=== PATIENT | male | born 1965 | race Caucasian/White ===

== ENCOUNTER 2016-06-09 07:09 | Day surgery (SDC) | payer MEDICARE ==
[~2016-06-09] VITALS: Ht 182.9 cm; Wt 77.1 kg
[~2016-06-09 07:09] MED LIST: AMLO10TA3 PO; CARV12.52 PO; EPIN0.3P17 IJ; FLUC200T5 PO; FLUC25PO MC; INSU500I SQ; Lactated Ringer's 1,000 ML IV SCH; NPH,100V11 SUBQ; OMEP20CA11 PO; PANT40TA3 PO; TERA2CAP4 PO; TRAZ-118 PO
[2016-06-09] MEDS ORDERED: Lidocaine PF 1% 30 mL Inj ONE (07:10)
[2016-06-09] MEDS ORDERED: Propofol 10,000 mCg/mL 20 mL Inj ONE (07:10)
[2016-06-09 07:47] VITALS: BP 130/84; PULSE 70; RESP 14; O2SAT 96
[2016-06-09] MEDS ORDERED: 0.9% Sodium Chloride 1,000 ML ONE (07:48)
--- NOTE | 2016-06-09 07:52 | PCM.HPANE ---
Patient Data Date of Service: Jun 09, 2016 Surgeon Admitting Provider: Attending Provider:Gregg Ray MD Primary Care Physician:Polo Clemons MD Other Provider:Ambrocio Collado Anesthesia Reason for Visit Screening, Esophagitis Ht/WT & BMI Height (Feet): 6 Height (Inches): 0 Weight (Kilograms): 77.11 Body Mass Index 23.00 Allergies Coded Allergies: Penicillins (Verified Allergy, Unknown, UNKNOWN, 05/24/15) Past Anesthesia History Anesthesia History: Denies:: Abnormal Airway, Anesthesia Reactions, Difficult Intubation, Fam Anesthesia Reaction, Fam Malignant Hypertherm, Malignant Hyperthermia Diabetes History Hx Diabetes?: Yes (Dialysis patient, non compliant) Type of Diabetes: Type I Glycemic Control: Insulin Dependent Current Bedside Blood Glucose: 121 MRSA MRSA: No Medications Blood Thinner: Aspirin Last Dose Blood Thinner: Jun 02, 2016 Hypertension Medication: Yes Home Meds Incl Beta Belinda: Yes Date Beta Belinda Taken: Jun 09, 2016 Time Beta Belinda Taken: 05:[address] 40 Mg Tablet.dr40 Mg PO BID #90 TABLET Prov:Jan Way MD 04/04/16 Reported Medications Fluconazole 200 Mg Ctowck330 Mg PO DAILY Ref 0 06/08/16 Fluconazole 100 Gm Jruqve370 Gm MC 06/08/16 Epinephrine 0.3 Mg/0.3 Ml Auto.injct0.3 Mg IJ ALLERGIES 04/02/16 Insulin Regular, Human (Humulin R U-500 Kwikpen)500/Ml (3) Insuln.pen5-10 Unit SQ BIDAC 04/02/16 NPH, Human Insulin Isophane (HUMulin-N U100 Insulin Vial)100 Unit/1 Ml Vial5-10 Unit SUBQ BID #1 VIAL Ref 0 per insulin sliding scale 04/02/16 Amlodipine 10 Mg Znqnhm65 Mg PO DAILY Ref 0 04/02/16 Carvedilol 12.5 Mg Hriqmx99.5 Mg PO BIDWM #60 04/02/16 Discontinued Reported Medications Omeprazole 20 Mg Capsule.dr20 Mg PO BID Ref 0 06/08/16 Terazosin 2 Mg Capsule2-4 Mg PO HS #60 04/02/16 Trazodone 100 Mg Osrvdc677-813 Mg PO HS #30 04/02/16 Mirtazapine 7.5 Mg Tablet7.5 Mg PO HS #30 04/02/16 Losartan Potassium 25 Mg Alxqnw48 Mg PO DAILY #30 04/02/16 Zolpidem 10 Mg Uokuae77 Mg PO HS PRN For Insomnia Ref 0 04/01/16 Temazepam 15 Mg Jmbidbp62-84 Mg PO HS PRN For Insomnia 30 Days Ref 0 04/01/16 History History of ENT Problems?: No HEENT History: Positive for:: Hearing Problem (mild right ear) Denies:: Abnormal Airway Difficult Intubation Denture Type: Full- Upper Hx of Heart Problems?: Yes Cardiovascular History: Positive for:: Atrial Fibrillation Hypertension Denies:: AICD Cardiac Surgery Chest Pain Congestive Heart Failure Edema Heart Murmur Irregular Heartbeat Pacemaker Rheumatic Fever Thrombophlebitis Valvular Heart Disease Hx of Respiratory Problem?: No Respiratory History: Positive for:: Pneumonia Use of C-PAP Machine (MARCELLE+ W/ BIPAP SLEEP STUDY 09/2013) Denies:: Asthma COPD Chest Surgery Cough Dyspnea Emphysema Hemoptysis Oxygen Administration Pulmonary Embolism Tuberculosis Hx Neurologic Problems?: Yes Neurological History: Positive for:: Dementia Headaches Seizures (with hypoglycemia) Denies:: Alzheimer's Disease CVA Dizziness Multiple Sclerosis Parkinson's Disease Hx of GI Problems?: Yes Gastrointestinal History: Positive for:: Gastroesphageal Reflux (gastritis in past) Gastrointestinal Bleeding Heartburn Denies:: Diverticulitis Hepatitis Hiatal Hernia Rectal Bleeding Other GI Pertinent History: chronic kidney dx last dialysis last night 06/08/16 Hx of Problems?: Yes Genitourinary History: Positive for:: HX of Hemodialysis (06/08 last) Denies:: Kidney Stones Urinary Tract Infection HX of Peritoneal Dialysis: Yes Male Hx: Denies:: Prostate Problems Scrotal Mass Testicular Surgery Skin History: Denies:: History Skin Disorders? Pressure Ulcers Hx Musculoskeletal Problems?: Yes Musculoskeletal History: Positive for:: Back Injury Musculoskeletal Trauma (S/P ORIF LT HIP,BILAT BKA'S) Denies:: Degenerative Joint Joint Replacement (pin in left hip) Systemic Lupus Hx of Psycho/Social Problems?: Yes Psycho Social History: Positive for:: Anxiety Hx Depression Denies:: Bipolar Disorder Suicide Attempt Hx Surgeries?: Yes (bilateral legs amputation,left arm fistula,) Hx Any Other Health Problems?: Yes Other History: Positive for:: Hospitalization (CHEST PAIN/ARRYTHMIA) Denies:: Cancer Endocrine Disease Thyroid Disease History Blood Transfusions: Denies:: Blood Transfuse Reaction Blood Transfusions Hx Diabetes: Yes (Dialysis patient, non compliant)Bedside Blood Glucose: 121 Other Pertinent History: bilateral leg amputation Hx Alcohol Use: Yes (very rarely)Hx Substance Use: No Smoking Status: Former Smoker Have You Smoked inLast 12 mo: No Stop/Bang Treated for Sleep Apnea?: Yes Do You Have a CPAP Machine?: No S-Snoring: Do You Snore Loudly: No T-Tired: feel tired, fatigued: No O-Obsered: Observed not breath: Yes P-Blood Pressure: treated: Yes B- Body Mass Index > 35 kg/m2: No A- Age over 50: Yes N- Neck Large Circumference: No G- Gender Male: Yes MARCELLE Total Score: 4 MARCELLE Risk Assessment: High Risk, =/>3 Yes MARCELLE Category 4 OutPt Procedure: Yes Risk Assessment Category Category 1A: Patient has history of documented sleep apnea, and HAS NOT received any narcotic, sedative or anesthesia administration during this stay. Category 1B: Patient has history of documented sleep apnea, and HAS received any narcotic , sedative or anesthesia administration during this stay Category 2: Patient has SUSPECTED Obstructive Sleep Apnea, and HAS received any narcotic , sedative or anesthesia administration during this stay. Category 3: Patient has SUSPECTED Obstructive Sleep Apnea and HAS NOT received narcotic, sedative or anesthesia administration during this stay. Category 4: Outpatient in Procedural Areas with known sleep apnea or who screen positive for High Risk via the STOP/BANG questionnaire. Exam Exam Vital Signs Vital Signs Date Time Temp Pulse Resp B/P Pulse Ox O2 Delivery O2 Flow Rate FiO2 06/09/16 07:47 37.1 70 14 130/84 96 Room Air General Appearance: Alert, Oriented X3, Cooperative HEENT/AIRWAY: MP 3, Neck Movement (OK), Mouth Opening (Wide), Other (upper dentures) Lungs: Clear to Auscultation, Normal Air Movement Heart: Regular Rate/Rhythm, Normal S1, Normal S2 Meds/Labs/Diagnostics Bedside Blood Glucose: 121 Plan Impression Patient chart reviewed, patient interviewed and anesthestic plan with risks, benefits, and alternatives discussed, and informed consent obtained. NPO Status: Prep ASA Physical Status: ASA3 Severe Disease Anesthetic Plan: MAC Bene/Risks/Altern/Consents: Yes HP Complete Prior to Induction: Yes Jan Sandoval MD Jun 09, 2016 07:52
[2016-06-09] MEDS ORDERED: Ondansetron 2 mg/mL 2 mL Inj IVPUSH PRN (08:35)
[2016-06-09] MEDS ORDERED: MetoCLOpramide 5 mg/mL 2 mL Inj IVPUSH PRN (08:35)
[2016-06-09 08:42] VITALS: BP 138/72; PULSE 68; RESP 14; O2SAT 95
--- NOTE | 2016-06-09 08:49 | PCM.ANEP1 ---
Post Anesthesia Phase 1 PACU Phase 1 Assessment Date of Service: Jun 09, 2016 Vital Signs Vital Signs Date Time Temp Pulse Resp B/P Pulse Ox O2 Delivery O2 Flow Rate FiO2 06/09/16 08:42 36.8 68 14 138/72 95 Room Air 06/09/16 07:47 37.1 70 14 130/84 96 Room Air Anesthetic Administered: MAC Level of Alertness: Sleepy, easy to arouse CONWAY's with Equal Strength: Yes Pain: No Nausea or Vomiting: No Oxygen Delivery: Room Air Lungs: Normal Air Movement Jan Sandoval MD Jun 09, 2016 08:49
[2016-06-09 08:52] VITALS: BP 129/65; PULSE 69; RESP 14; O2SAT 97
[2016-06-09 09:03] VITALS: BP 111/63; PULSE 67; RESP 14; O2SAT 96
--- NOTE | 2016-06-09 09:07 | PCM.ANEP2 ---
Post Anesthesia Evaluation ASA/CMS Post Anesthesia Date of Service: Jun 09, 2016 VS in Patient's Normal Range?: Yes Resp Stable; Airway Patent?: Yes CV Function & Hydration Stable: Yes Mental Status Recovered?: Yes Pain control Satisfactory?: Yes N/V Control Satisfactory?: Yes Jan Sandoval MD Jun 09, 2016 09:07
--- NOTE | 2016-06-09 09:48 | ENDO ---
[address] [address] ENDOSCOPY PROCEDURE PATIENT: MICHELLE MARY : 1965 MR#: [id number] ADMIT: 06/09/2016 JOB ID: [id number] DATE OF SERVICE: 06/09/2016 PRIMARY PROVIDER: Polo Clemons MD. PROCEDURE: 1. Upper endoscopy. 2. Colonoscopy. INDICATIONS: A 50-year-old male with a history of severe ulcerative esophagitis, returning for surveillance. He also reports for colon cancer screening. EQUIPMENT: GIF-H190 and PCF-H180AL. SEDATION: Monitored anesthesia, as provided by Dr. Jan Sandoval MD. COMPLICATIONS: None identified. BOWEL PREPARATION: Suboptimal. PROCEDURE INFORMATION: After the risks and benefits were explained, written and verbal informed consent was obtained. The patient was brought into the endoscopy suite and placed into the left lateral decubitus position. Sedation was achieved as above. The scope was introduced into the mouth through the bite block, and advanced to the second portion of the duodenum. The scope was slowly withdrawn to carefully examine the mucosa for any defects or lesions. Retroflexed views were accomplished in the stomach. The stomach was decompressed. Scope removed from the patient who tolerated the procedure well. The patient was then turned around. A digital rectal examination accomplished. Mild internal hemorrhoids noted. The scope introduced into the rectum and advanced under direct visualization to the cecum as identified by the appendiceal orifice and ileocecal valve. The scope was slowly withdrawn to carefully examine the mucosa for any defects or lesions. Multiple direct views were made through the dentate line for exclusion of pathology. The colon was decompressed. The scope removed from the patient who tolerated the procedure well. FINDINGS: 1. Duodenum: No pathology from the bulb through to the second portion. 2. Stomach: The patient had some retained food debris consistent with diabetic gastroparesis. No ulcers, no outlet obstruction. No mass lesions. Retroflexed views of the LES were unremarkable. 3. Esophagus: The squamocolumnar junction correlated with the top of the gastric folds. The GEJ was at about 41 cm from the incisors. There was no evidence of any ongoing active esophagitis at present. 4. Colon: Suboptimal bowel prep with copious amounts of liquid and fibrous stool debris. Within the limitations of bowel prep (there were some areas we just simply could not cleanse, otherwise the scope would have been completely clogged) we did not uncover any significant polyps, mass lesions, or inflammatory features. ENDOSCOPIC DIAGNOSES: 1. Subtle sliding hiatal hernia (not mentioned above). 2. Mild gastropathy with diabetic gastroparesis. 3. Mild hemorrhoids. 4. Suboptimal bowel preparation. RECOMMENDATIONS: 1. Continue anti-reflux therapy. 2. Repeat colonoscopy in 1-2 years with a double prep and anesthesia.
== END 2016-06-09 23:59 | disposition home or self-care (01) ==
LOC: END 07:09
PROVIDERS: ATTEND Internal Medicine Gastroenterology
DX: Z12.11 Encounter for screening for malignant neoplasm of colon (principal); K64.9 Unspecified hemorrhoids; K44.9 Diaphragmatic hernia without obstruction or gangrene; E10.43 Type 1 diabetes mellitus with diabetic autonomic (poly)neuropathy; K31.84 Gastroparesis; N18.6 End stage renal disease; I12.0 Hypertensive chronic kidney disease with stage 5 chronic kidney disease or end stage renal disease; I48.91 Unspecified atrial fibrillation; K21.9 Gastro-esophageal reflux disease without esophagitis; F32.9 Major depressive disorder, single episode, unspecified; F41.9 Anxiety disorder, unspecified; Z79.4 Long term (current) use of insulin; Z79.82 Long term (current) use of aspirin; Z99.2 Dependence on renal dialysis; Z87.891 Personal history of nicotine dependence
CPT/HCPCS: 43235; G0121; J7030

== ENCOUNTER 2016-12-24 15:33 | Inpatient (IN) | payer MEDICARE, OTHER ==
[~2016-12-24 15:33] MED LIST changes: -Lactated Ringer's 1,000 ML IV SCH; -OMEP20CA11 PO; -TERA2CAP4 PO; -TRAZ-118 PO
[2016-12-24 16:34] VITALS: BP 169/86; PULSE 86; RESP 18; O2SAT 93
[2016-12-24 16:41] VITALS: PULSE 83
[2016-12-24] MEDS ORDERED: LOSA50TA37 PO (17:13)
[2016-12-24] MEDS ORDERED: OMEP20CA11 PO (17:13)
[2016-12-24] MEDS ORDERED: CHOL200047 PO (17:13)
[2016-12-24] MEDS ORDERED: MULT-666 PO (17:17)
--- NOTE | 2016-12-24 17:20 | NUR ---
Admit Patient arrived to unit as a direct admit from [facility]. VS: BP 169/86 P 84 Sp02 93% on 4L NC RR 18 BG 105. Pt is alert and oriented when awake but is very tired and would fall asleep mid-conversation. Pt c/o severe left hip and leg pain. Was given 4mg morphine [employer] by EMS. Fall precautions and seizure pads in place. Pt has bilateral BKAs; LLE has sore from prosthetics as dose medial right calf (see assessment for details). Pt is on JAYCEE bed. MD notified of pts arrival.
[2016-12-24] MEDS ORDERED: IBUP200C PO (17:23)
[2016-12-24] MEDS ORDERED: ASPI325T32 PO (17:23)
[2016-12-24] MEDS ORDERED: TERA2CAP4 PO (17:35)
--- NOTE | 2016-12-24 17:46 | NUR ---
Admit nurse note Admission assessment completed based on pt. report. Pt. states he doesn't know why he's here "they brought me here from [place]." Pt is drowsy but oriented when roused with verbal stimuli. He become easily irritated with my assessment questions. Med history obtained based on pt. report and [facility] report. It is unclear whether he is taking carvedilol: He picked it up recently but does not remember it, and pt. recently d/c'd terazosin for unknown reasons. Pt. states he lives with his girlfriend Ginna and is managing at home "to a point." He states he was at dialysis at 0400 today and took all his medications including insulin around that time. Pt. c/of 7/10 L leg pain which is abnormal for him. Hx sleep apnea but pt. does not use his CPAP. in room with pt. SP02 monitoring on currently. Report given to Andrew Mancuso.
--- NOTE | 2016-12-24 18:34 | NUR ---
Blood sugar MD ordered D20 at 40ml/hr and stated that he wanted hourly blood glucose checks until D20 fluid runs out
[2016-12-24] MEDS ORDERED: Dextrose 10% 1,000 ML IV SCH (18:40)
[2016-12-24] MEDS ORDERED: Polyethylene Glycol (PEG) 17 Gm Powder PO PRN (19:20)
[2016-12-24] MEDS ORDERED: Alum-Mag Hydrox-Simeth 30 mL Suspension PO PRN (19:20)
--- NOTE | 2016-12-24 19:45 | DRSVH ---
PROCEDURE: US VEINOUS LEG DUPLEX UNILATERAL, LEFT INDICATIONS: ddimer, pain TECHNIQUE: Real-time imaging, as well as color and pulse Doppler interrogation, were performed of the lower extr emity deep veins from the inguinal ligament to the popliteal fossa. COMPARISON: None. FINDINGS: The deep veins are normally compressible, and free of intraluminal thrombus. Color and pu lse Doppler demonstrate normal phasic intraluminal flow. There is normal augmentation response to di stal compression maneuver. IMPRESSION: No DVT found, left lower extremity. Below knee amputation left leg. Dictated by: Nicola Lozano M.D. on 12/24/2016 at 19:43 Approved by: Nicola Lozano M.D. on 12/24/2016 at 19:44
[2016-12-24 19:56] LABS: BASOPHILS % (AUTO) 0.1 % (0-3); EOSINOPHILS % (AUTO) 0.4 % (0-5); MONOCYTES % (AUTO) 10.1 % (4-12); Mean Corpuscular Hemoglobin 31.1 pg (27.0-35.0); NEUTROPHILS % (AUTO) 79.2 % (40-74); Platelet Count 155 bil/L (150-400)
[2016-12-24 20:41] LABS: TROPONIN T 0.121 ug/L (0.0-0.011)
[2016-12-24] MEDS: HYDROmorphone 0.5 mg/0.5 mL iSecure Syringe IVPUSH PRN (21:13)
[2016-12-24] MEDS: Heparin 5,000 Unit/mL Inj SUBQ SCH (21:13)
--- NOTE | 2016-12-24 21:44 | PCM.HPMED ---
Subjective Date of Service Dec 24, 2016 Primary Provider: Admitting Physician: Deejay Kerr MD Primary Care Physician: Polo Clemons MD Attending Physician: Deejay Kerr MD Chief Complaint: Hypoglycemic seizure. History of Present Illness: Mr. Nelson Garcia is a 51 gentleman with end-stage renal disease and BKA's secondary to poorly controlled diabetes mellitus on hemodialysis Mondays, Wednesdays, and Fridays, who presents as a direct admit from [facility] to [facility] due to witnessed seizures and hypoglycemia. Patient was driving to work 2 hours following his dialysis session, and around 11am patient [place] [address] [place] ditch were first responders found him actively seizing. EMS reports a Blood glucose of 30 and 110 upon arrival to [facility]. He had an elevated d-dimer and underwent a CT Chest PE which was negative for PE. Patient received 4mg IV morphine due to complaints of left hip pain and was drowsy mildly difficult to interview. Patient was accompanied by his , Ginna, who was at bedside during the course of our interview. She reports grand-mal seizures have been present every single day for at least a year. She reports patient has aura before seizure activity and post-ictal confusion most of the time. She reports patient was on anti-seizure medication and he took himself off it. They do not check blood sugars before or after these events, and she does not know how well/poorly controlled his diabetes is currently. She denies recent illness, nausea, vomiting, fever, syncope, chest pain, shortness of breath, abdominal pain, constipation, diarrhea. He reports hip pain , and chills with seizures. Vitals are as follows: T - 36.9, HR - 86, RR - 18, BP - 169/86, 93% 4LO2 NS. Social: Patient lives at home in [place] with children. 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 Full Code. Review of Systems: A comprehensive review of systems was conducted with the patient and found to be negative except as above in the History of Present Illness. Allergies Coded Allergies: Penicillins (Verified Allergy, Unknown, UNKNOWN, 05/24/15) Home Medications Amlodipine 10 mg daily Asa 325, 650 BID Carvedilol 12.5 BID WM Cholecalciferol 2000U dialy Epinephrine 0.3 MG Ibuprofen 400 mg PO BID Insulin Regular, 5-10 U US BIDAC Losartan Potassium 50 Mg Daily Insulin NPH 5-10 U SQ HS Omeprazole 20 mg daily PMH Diabetes mellitus, insulin-dependent (patient did not know his last hemoglobin A1c) End-stage renal disease on hemodialysis Mondays, Wednesdays, and Fridays Peripheral vascular disease . Surgical History Bilateral xhqvs-obj-ckgx amputations Fistula placement on the left . Family History Could not report or recall. Social History Hx Alcohol Use: Yes (very rarely) Hx Substance Use: Yes (marijuana for sleep) Hx Tobacco Use: Yes Smoking Status: Former Smoker Exam Vital Signs Vital Sign - Last Date Time Temp Pulse Resp B/P Pulse Ox O2 Delivery O2 Flow Rate FiO2 12/24/16 16:41 83 12/24/16 16:39 Supplement Oxygen 12/24/16 16:34 36.9 18 169/86 93 4.00 Exam General: Middle aged gentleman lying in bed in very mild acute distress, well- developed, well-nourished, inappropriately interactive HEENT: Normocephalic, atraumatic. External ears without defect. Pupils equal, round, and reactive to light and accommodation. Anicteric sclerae, moist conjunctivae, and no lid lag. Oropharynx free of erythema and cobble stoning with moist mucosa. Neck: Supple with full range of motion. No jugular venous distension. No bruits. No lymphadenopathy or thyromegaly. Cardiovascular: Regular rate and rhythm with no murmurs, rubs, or gallops appreciated Pulmonary: Clear to auscultation bilaterally with no crackles, wheezes, or rhonchi. Normal respiratory effort with no use of accessory muscles. Abdomen: Bowel tones present. Soft, nontender, nondistended. No hepatosplenomegaly or masses appreciated. Extremities: No clubbing, cyanosis, edema, or lymphadenopathy appreciated. Dialysis fistula present with thrill on left upper extremity. B/L BKA. Skin: Normal temperature, turgor, and texture; no rash, ulcers, or subcutaneous nodules appreciated. Neurological: Patient was drowsy and difficult to interview. Psychiatric: Patient was drowsy and difficult to interview. Assessment & Plan Mr. Nelson Garcia is a 51 gentleman with end-stage renal disease and BKA's secondary to poorly controlled diabetes mellitus on hemodialysis Mondays, Wednesdays, and Fridays, who presents as a direct admit from [facility] to [facility] due to witnessed seizures and hypoglycemia. Hypoglycemia, present on admission. Resolved. - IV D10W @ 40 ml/hr. - Procalcitonin elevated 0.37. - Morning CXR ordered. - May consider consulting endocrine tomorrow for better outpatient regimen. - Nephrology consulted. Acute Respiratory failure, present on admission. Active. - Report from hand off was that CT PE from [facility] was negative for PE, - Patient not on home O2. requiring 4 L O2. With recent hypoglycemic event and elevated procalcitonin, fever and O2 needs this may be infectious. - Standard pneumonia workup- MRSA, legionella/S pneumo urine antigen, Viral PCR , Sputum cx, blood cx x2, - Empiric antibx for presumed CAP. Ceftriaxone/Azithromycin. - CXR in the AM. - DuoNeb Q4HWA, Albuterol Q2H PRN. Witnessed out of hospital Seizure-like activity. Not present on admission. Stable. - Likely 2nd to hypoglycemia. - With 1+ year of reported nightly seizures of unknown etiology. - Neurology consulted. ESRD, on Dialysis. - M,W,F schedule. - Outpatient in shop service technician, Dr. Pruitt. - Phos pending. - Nephrology consulted. Insulin requiring Diabetes Mellitus. - Hold home doses. - A1c pending. - Medium correctional scale. Lantus 10 HS for now. Hip pain. - Patient reports new onset left hip pain. - Left Venous Duplex negative for DVT. - Left 2 view XRay ordered. - IV Dilaudid 0.25 - 0.5 mg Q4H prn pain. Obstructive Sleep Apnea, not compliant with home CPAP. - Nightly CPAP ordered. Hypertension - Will continue home Carvedilol, Amlodipine, and Losartan. GERD. - Continue home Omeprazole. Chronic pain. - Patient taking abnormally large doses of ASA and Ibuprofen daily. - Holding home asa/nsaids. Acetaminophen for mild pain when necessary. Bowel regimen Senna and MiraLAX scheduled and PRN. Zofran when necessary for nausea and vomiting. SubQ heparin for now. SCDs in place. High-risk medications: IV Morphine IV Dilaudid. Patient Status: Patient is admitted under inpatient status with expected length of stay greater than 2 midnights due to severity of presenting symptoms, risk of adverse event, and complexity of treatment plan. Pain Evaluation: Adequate Pain Control Resuscitation Status: CPR: Attempt Resuscitation Attending Statement The patient was seen and examined together with Dr. Peña on 12/24 and I agree with the history, exam and plan as outlined in the note above. NESHA PEÑA DO Dec 24, 2016 19:21 Brant Oneal MD Dec 24, 2016 22:44
[2016-12-24 22:44] VITALS: BP 155/82; PULSE 81; RESP 16; O2SAT 95
[2016-12-24] MEDS ORDERED: Albuterol 2.5 mg/3 mL Inhalation Solution NEB PRN (22:55)
[2016-12-24] MEDS ORDERED: Glucose 40% Oral Gel 15 Gm Tube PO PRN (23:20)
[2016-12-24] MEDS ORDERED: Insulin GLARgine 100 Unit/mL Syringe SUBQ ONE (23:20)
[2016-12-24] MEDS ORDERED: Azithromycin Inj 500 MG in Dextrose 5% w/Vial Mate 250 ML IV SCH (23:30)
[2016-12-24] MEDS ORDERED: cefTRIAXone Inj 2,000 MG in Dextrose 5% Minibag Plus 50 ML IV SCH (23:30)
[2016-12-24] MEDS ORDERED: 0.9% Sodium Chloride 250 ML ONE (23:45)
[2016-12-25] VITALS (12 sets, daily range): BP systolic 126–181; BP diastolic 58–93; PULSE 71–87; RESP 12–22; O2SAT 91–98
[2016-12-25] MEDS: Insulin LISPRO 300 Unit/3 mL Inj SUBQ SCH ×3 (00:16→13:04)
[2016-12-25] MEDS: HYDROmorphone 0.5 mg/0.5 mL iSecure Syringe IVPUSH PRN ×2 (02:00→06:50)
--- NOTE | 2016-12-25 04:46 | NUR ---
Blood Glucose D10w on hold at this time per MD orders. BG 305. MD notified. New order: Lantus 10 units with sliding scale. Administered Lantus and 5 units sliding scale. BG decreased 290,172. Will continue to monitor. Call light within reach. Frequent rounding and turns during the night. Pleasant and cooperative with care.
--- NOTE | 2016-12-25 04:52 | NUR ---
Pain Pt complained of left hip pain 8/10 x2 during the night. Administered PRN dilaudid, effective. Pt rested through most of the night. No s/sx of pain or distress at this time. Bed locked, low position. Call light within reach. Pleasant and cooperative with care.
[2016-12-25] MEDS: Heparin 5,000 Unit/mL Inj SUBQ SCH ×4 (06:50→16:30)
[2016-12-25] MEDS ORDERED: Insulin LISPRO 300 Unit/3 mL Inj SUBQ SCH (08:00)
[2016-12-25] MEDS ORDERED: Azithromycin Inj 500 MG in Dextrose 5% w/Vial Mate 250 ML IV SCH (08:30)
[2016-12-25] MEDS ORDERED: cefTRIAXone Inj 2,000 MG in Dextrose 5% Minibag Plus 50 ML IV SCH (08:30)
[2016-12-25] MEDS: Albuterol-Ipratropium 3 mL Inhalation Solution NEB SCH ×3 (09:02→21:24)
[2016-12-25] MEDS: Pantoprazole 20 mg ER24 Tablet PO SCH (09:23)
[2016-12-25 09:39] LABS: Mean Corpuscular Hemoglobin 30.4 pg (27.0-35.0); Mean Corpuscular Volume 93.5 fL (81-100)
--- NOTE | 2016-12-25 12:28 | NUR ---
Inpatient Wound Nurse Patient seen for L patella wound, measures 2.5 cm L x 2.0 cm W x 0.2 cm D, appears to be a Stage 2 pressure injury resultant of friction, may be trauma related to seizure activity or pressure related to poorly fitting prosthesis. Beefy red, granulating wound bed, edges well adhered, smooth, beveled margins indicate chronic stimulus. Small amount of serosanguinous drainage. Wound was covered with hydrocolloid and Mepilex sheet foam left in room, patient instructed to use Mepilex sheet foam over hydrocolloid whenever prosthesis is on and to see prosthesis fitter, possibly [facility], for refit. Patient was very groggy and had a hard time staying awake during care. Nursing staff may change hydrocolloid PRN. CWON will see patient on Wednesday if he is not discharged. 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 Harm to self as well as others is high. Please see http://www.dol.[place].gov/driverslicense/reportunsafe.html; form for medical provider to report or recommend licensing changes will be left in patient's chart
--- NOTE | 2016-12-25 12:45 | NUR ---
oxygenation Titrated pt down from 4L to 2L. Reassessed frequently over two hours and pt maintained an Sp02 between 93-97%. Pt is on MP30. Continue to monitor
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
--- NOTE | 2016-12-25 14:25 | DRSVH ---
PROCEDURE: X-RAY LEFT HIP COMPLETE, MINIMUM TWO VIEWS ([id number]) INDICATIONS: pain TECHNIQUE: 2 views of the hip were acquired. COMPARISON: [facility], , HIP COMP MIN 2VW (LT), 04/28/2011, 15:54. FINDINGS: Bones: Healed fracture deformity involving the left femoral neck and 3 partially threaded fixation sc rews are present in expected position. There is mild left hip joint degeneration and diffuse osteope ann marie is noted. Soft tissues: No suspicious soft tissue calcifications or masses. IMPRESSION: Healed fracture deformity of the left femoral neck with expected positioning of fixation hardware. Mild left hip joint degeneration and diffuse osteopenia. Dictated by: Richie CALVERT Interpreted: Jesenia Weston MD on 12/25/2016 at 9:37 Approved by: Jesenia Weston M.D. on 12/25/2016 at 14:23
--- NOTE | 2016-12-25 14:28 | DRSVH ---
PROCEDURE: X-RAY CHEST ONE VIEW, PORTABLE ([id number]) INDICATIONS: dyspnea TECHNIQUE: One view of the chest was acquired. COMPARISON: [facility], CR, XR CHEST 1VW (PORTABLE), 01/27/2015, 22:24. FINDINGS: Surgical changes and devices: None. Lungs and pleura: No pleural effusions or pneumothorax. Lungs are clear. Mild elevation right mahogany diaphragm redemonstrated. Mediastinum: Mediastinal contours appear normal. Heart size is normal. Bones and chest wall: No suspicious bony lesions. Overlying soft tissues appear unremarkable. IMPRESSION: No acute cardiopulmonary disease. Dictated by: Richie Figueroa [facility] Interpreted: Jesenia Weston MD on 12/25/2016 at 9:47 Approved by: Jesenia Weston M.D. on 12/25/2016 at 14:25
--- NOTE | 2016-12-25 15:00 | NUR ---
Rapid Response LSN by this RN 1430; pt had just finished eating half his lunch. Was given 5 units of nutritional insulin for BG of 135. RN called into remove by [employer] stating that patient was acting abnormal at 1450 when he tried to perform an EEG. This RN entered the pts room at which pt was diaphoretic, cold, presenting with seizure like sx, desating mid-eighties on 2L NC, and unable to answer questions. Charge nurse called and RR at 1451. Pt was placed on 12L oxymask and BG reading of 20 @ 145. 1 amp D50 administered at 1454 and IV D10 @ 50ml/hr started. Pt started to become responsive and answering questions appropriately. BG at 1456 185, BG 1520 54. Had pt drink glass of apple juice. Rechecked BG at 1540 68. gave another glass of apple juice will continue check BG until WNL and then Q2h per MD order.
[2016-12-25] MEDS ORDERED: Dextrose 10% 250 ML IV ONE (15:05)
--- NOTE | 2016-12-25 15:11 | NUR ---
responded to rapid response for siezures likely due to low blood sugar of 50. D-50 given by RN, Dr Stevenson here, O2 SATS briefly dropped to 88% on 2 liters. placed on 12 liter oxymask then returned pt to MD when he was able to respond appropriately. Pt was breathing spontaneously through out and did not require any additional intervention from RT
[2016-12-25] MEDS ORDERED: Insulin LISPRO 300 Unit/3 mL Inj SUBQ PRN (15:25)
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
[2016-12-25] MEDS ORDERED: Dextrose 10% 250 ML IV PRN (15:50)
--- NOTE | 2016-12-25 18:22 | NUR ---
Bladder scan Pt has not voided since admit. Bladder scan 468ml. Pt states no discomfort or feeling of need to void. Pt is unable to sit or roll on side to attempt to void d/t lower back/buttocks pain. paged for in and out cath order
--- NOTE | 2016-12-25 21:30 | NUR ---
transfer: pt lethargic upon initial assessment. pt able to answer questions appropriately but with eyes closed. pt able to open eyes is asked to do so. blood sugar at [address], sats in mid 80's with 5LO2 via oxymask. O2 up to 10L. pt sleeping, with apnea, known hx of MARCELLE. Hospitalist paged, orders for Chest Xray, no other orders at this time. RT notified here to see pt, neb tx and pt repositioned, pt yelling in pain with repositioning. pt sats improved pt then on 5LO2 sats mid 90's. surgery aide aware, pt to transfer to PCC room 2003. Report given to PCC RN.
[2016-12-25 22:08] LABS: APPEARANCE,URINE CLEAR (CLEAR,HAZY); COLOR,URINE YELLOW (YELLOW); OCCULT BLOOD,URINE TRACE (NEGATIVE); PH,URINE 8.5 (5.0-8.0); UROBILINOGEN,URINE NORMAL (NORMAL)
[2016-12-26] VITALS (7 sets, daily range): BP systolic 122–179; BP diastolic 59–84; PULSE 67–85; RESP 16–20; O2SAT 95–100
[2016-12-26] MEDS: Heparin 5,000 Unit/mL Inj SUBQ SCH ×2 (00:30→22:10)
[2016-12-26] MEDS ORDERED: cefTRIAXone Inj 2,000 MG in Dextrose 5% Minibag Plus 50 ML IV SCH (01:30)
[2016-12-26] MEDS ORDERED: 0.9% Sodium Chloride 250 ML ONE (02:42)
--- NOTE | 2016-12-26 06:41 | NUR ---
BGs/Pain/No CXR Pt's BG was 564 and a repeat BG was done and could not be read by the meter. BMP was ordered and lab diamond the pt's blood and got a BG of 681. was notified and put the pt on a low dose algorithm ACHS with Lispro. Pt received 4 Units of Lispro. Pt BG recheck 2H later pt's BG was 515. Pt did not have seizure activity once transferred to [facility]. Pt's VSS with SpO2 >92% on 3.5L oxymask. Pt's pain in back and legs was 10/10 and the CXR was unable to be completed. Pt received 1mg morphine IVP to premedicate for a second CXR attempt with no relief of the pain. Pt still needs to have CXR today.
[2016-12-26] MEDS ORDERED: Insulin LISPRO 300 Unit/3 mL Inj SUBQ SCH (08:00)
[2016-12-26] MEDS: Albuterol-Ipratropium 3 mL Inhalation Solution NEB SCH (08:16)
[2016-12-26] MEDS: Pantoprazole 20 mg ER24 Tablet PO SCH (08:30)
--- NOTE | 2016-12-26 08:42 | NUR ---
BG/Dialysis Pt BG at 0815 is MD Sheryl notified. rug setter [place] called for transport to Dialysis, holding medications per rug [facility] [place]. Laquita gutierrez per rug [facility]ter [place]. Called pharmacy, Laquita still needs verification. Pharmacist award of BG of 511, michelle pt transferring to Dialysis unit. Pt off floor at 0855 to Dialysis. Care continues. Addendum: 12/26/16 at 1221 by ALVARADO SHEPHERD RN Pt not off floor until 0945 to dialysis, waited for Pharmacy to send NPH and Junuvia to [facility] for administration.
--- NOTE | 2016-12-26 09:15 | NUR ---
NIEVES signed Pt in too much pain to sign, requested his s/o sign. Holly Hanson MSW
[2016-12-26] MEDS: Insulin Human NPH 100 Unit/mL Syringe SUBQ SCH ×2 (09:23→18:03)
--- NOTE | 2016-12-26 11:34 | PCM.PNNEPH ---
Subjective Date of Service Dec 26, 2016 Subjective Patient's blood sugar is elevated today. He denies any headache, chest pain, or shortness of breath. His appetite is fair. This morning his blood sugar was 449, sodium is 125, potassium 6.8, chloride 79, bicarbonate 18, BUN and creatinine were 99 of 10.7 respectively. Exam Vital Signs Vital Sign - Last Date Time Temp Pulse Resp B/P Pulse Ox O2 Delivery O2 Flow Rate FiO2 12/26/16 08:15 83 20 99 OxyMask 4.00 12/26/16 08:15 36.9 147/68 Intake and Output 12/25/16 12/25/16 12/26/16 Cumulative From/Thru 15:00 23:00 07:00 12/24/16 16:36 - 12/26/16 06:48 Intake Total 50 ml 1268 ml 740 ml 2058 ml Output Total 0 ml 0 ml 0 ml Balance 50 ml 1268 ml 740 ml 2058 ml Intake Oral 50 ml 1100 ml 400 ml 1550 ml IV Total 168 ml 340 ml 508 ml Output Urine Total 0 ml 0 ml 0 ml Exam Neck is supple without adenopathy, thyromegaly, or jugular venous distention. Lungs are clear to auscultation. Heart is regular and rhythmical with a soft systolic murmur. Abdomen soft without any tenderness or rebound guarding masses or hepatosplenomegaly. Extremities did not show any evidence of any clubbing, cyanosis, or edema. Lab and Diagnostics Result Diagram: 12/25/16 0659 12/26/16 0240 Plan Impression Impression #1 end-stage renal disease dialysis dependent number to diabetic nephropathy #3 hypertension with hypertensive heart disease #4 seizure disorder Recommendations #1. A neurology evaluation of his untreated seizure disorder. In reviewing his labs I strongly feel that the patient is under dialyzed with only dialyzing 3 hours and 15 minutes 3 days a week. I feel that this may be adding to some of his symptomatology. I have discussed with the patient and the patient refuses to dialyze any longer. Patient dialyzed today for 3 hours and 15 minutes, standard dialyzer, 2 potassium bath, 400 blood flow 600 dialysate flow, thousand of heparin and 400/h and will take 2 L of fluid off. Iban Armas DO Dec 26, 2016 11:34
[2016-12-26] MEDS ORDERED: Albuterol-Ipratropium 3 mL Inhalation Solution NEB PRN (12:05)
--- NOTE | 2016-12-26 13:44 | NUR ---
Hemodialysis note: 3hr 15min HD tx completed w/o complications 2Kg fluid removed 80.1L processed VSS see DTR for full VS Blood sugars monitored and charted Post BG 205 at 1315, after lunch SALVADOR fistula used at BFR 450 Pt slept most of tx. ate 1/2 of lunch Pressure held with clamps post tx x 10 min. T&B present post tx. Transferred back to 2003 via bed
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
--- NOTE | 2016-12-26 15:17 | NUR ---
PCC Pt back to PCC unit at approximately 1450. Pt arrived sleeping, asking for pain medication. Care continues.
[2016-12-26] MEDS ORDERED: Ketorolac 15 mg/mL Inj IVPUSH ONE (17:15)
[2016-12-26] MEDS ORDERED: Glucose 40% Oral Gel 15 Gm Tube PO PRN (17:20)
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
[2016-12-26] MEDS: Insulin LISPRO 300 Unit/3 mL Inj SUBQ SCH ×2 (18:21→22:00)
[2016-12-27] VITALS (9 sets, daily range): BP systolic 125–179; BP diastolic 70–87; PULSE 66–84; RESP 16–20; O2SAT 93–100
[2016-12-27] MEDS: Insulin Human NPH 100 Unit/mL Syringe SUBQ SCH ×3 (03:30→17:37)
--- NOTE | 2016-12-27 06:13 | NUR ---
BGs Pt's BGs have remained in the 100s throughout the welder 2nd shift. Pt was not given any Lispro. Pharmacy had to be called in order to get a 5 Unit dose of NPH that was administered at 0330 since the medication was not available prior to that time. Pt agreed to wear a CPAP throughout the welder 2nd shift and was compliant the entire shift. Pt did c/o 6-7/10 pain in back and legs and received 5mg oxycodone first time receiving PO pain medication and then 10mg oxycodone the second time the pt received pain medication. Pt did refuse to be moved r/t pt's pain. Pt SpO2 remained >92% on the CPAP or 3.5L NC.
[2016-12-27] MEDS: Insulin LISPRO 300 Unit/3 mL Inj SUBQ SCH ×4 (08:00→22:00)
[2016-12-27] MEDS ORDERED: EPINEPHrine 0.1 mg/mL 10 mL Syringe ONE (08:03)
[2016-12-27] MEDS: Pantoprazole 20 mg ER24 Tablet PO SCH (10:01)
[2016-12-27] MEDS: Heparin 5,000 Unit/mL Inj SUBQ SCH ×2 (10:03→20:30)
--- NOTE | 2016-12-27 11:33 | PCM.PNMED ---
Subjective Date of Service Dec 27, 2016 Subjective 51-year-old man with poorly controlled type II diabetes mellitus and ESRD presents with hypoglycemia and seizures. He continues to complain of severe low back and bilateral thigh pain, which is acute. He has history of left hip fracture and DJD. He denies bowel or bladder incontinence or change in perineal sensation. He tolerated BiPAP mask overnight. No recurrent seizures overnight. Blood sugar is now normalizing with every 8 hours low-dose NPH basal therapy. We have initiated a very light correctional scale of lispro which is not induced hypoglycemia so far. Exam Vital Signs Vital Sign - Last Date Time Temp Pulse Resp B/P Pulse Ox O2 Delivery O2 Flow Rate FiO2 12/27/16 09:27 37.0 83 18 179/87 100 Nasal Cannula 3.50 Intake and Output 12/26/16 12/26/16 12/27/16 Cumulative From/Thru 15:00 23:00 07:00 12/24/16 16:36 - 12/27/16 05:35 Intake Total 0 ml 2058 ml Output Total 2000 ml 0 ml 2000 ml Balance -2000 ml 0 ml 58 ml Intake Oral 0 ml 1550 ml IV Total 508 ml Output Urine Total 0 ml 0 ml Ultrafiltrate 2000 ml 2000 ml # Bowel Movements 0 0 Exam General: Alert, comfortable no acute distress HEENT: sclerae anicteric, oral mucosa moist Neck: no JVD Chest: clear to auscultation Cardiac: S1S2, murmur Abdomen: BS normal, non-tender Extremities: Bilateral amputations. Neuro: A&O, cranial nerves symmetric, motor strength and coordination normal Lab and Diagnostics Result Diagram: 12/25/16 0659 12/26/16 0240 X-Rays, CTs and MRIs PROCEDURE: X-RAY LEFT HIP COMPLETE, MINIMUM TWO VIEWS ([id number]) IMPRESSION: Healed fracture deformity of the left femoral neck with expected positioning of fixation hardware. Mild left hip joint degeneration and diffuse osteopenia. Dictated by: Richie Figueroa [facility] Interpreted: Jesenia Weston MD on 12/25/2016 at 9:37 Approved by: Jesenia Weston M.D. on 12/25/2016 at 14:23 PROCEDURE: US VEINOUS LEG DUPLEX UNILATERAL, LEFT IMPRESSION: No DVT found, left lower extremity. Below knee amputation left leg. Dictated by: Nicola Lozano M.D. on 12/24/2016 at 19:43 PROCEDURE: X-RAY CHEST ONE VIEW, PORTABLE ([id number]) IMPRESSION: No acute cardiopulmonary disease. Dictated by: Richie CALVERT Interpreted: Jesenia Weston MD on 12/25/2016 at 9:47 . Assessment & Plan Hypoglycemia, present on admission. Active. He is demonstrating increased some sensitivity, brittle blood sugar control, likely due to suboptimal insulin dosing. Blood sugar seems to have dropped to 20 yesterday at 80 minutes following 5 units of lispro. Earlier in the morning he tolerated 12 units lispro with BG correction from 311 down to 135. 10 units glargine at bedtime resulted in fasting a.m. blood sugars of 172-311. On NPH 5 units every 8 hours he is currently ranging 80-200. - Continue every 8 hour low-dose NPH. Started at 5 units every 8 hours, likely will need to titrate upward. This must be given at 0800, 1600, 2400 hr regardless of glucose value. Target fasting glucose range 100-200. - Continue ultra low-dose lispro correctional - Continue sitagliptin (Januvia) as a low hypoglycemia risk diabetic agent; okay for use in renal failure and low-dose. If this is affectively may be able to discontinue lispro - Likely to require 1 days of insulin adjustments to develop a diabetic regimen that is low risk for hypoglycemia. - The patient was counseled that he may not operate a motor vehicle until he has consistently shown no hypoglycemia and no seizures. Recommend social work consult regarding work disability status. Hip pain. Patient reports severe left hip and bilateral leg pain. History of previous left hip fracture and DJD. Hip x-ray reveals no acute fracture, but chronic DJD. He does not have a history of chronic opioid use. Left Venous Duplex negative for DVT. He should be encouraged to manage with non-opioids and nonpharmacologic measures. - Discontinued parenteral morphine 1 mg Q4H PRN for severe pain, - Oral oxycodone 5 mg Q4HPRN for severe pain; plan to taper off in 1-2 days - Weaned to Tylenol as patient mobilizes - Physical therapy - Repeat LS spine and pelvic x-ray if patient will tolerate Seizure. recurrent. Active. Differential diagnosis is underlying seizure disorder versus hypoglycemic-induced seizures. - Neurology consulted. - EEG performed and interpretation is pending Insulin requiring Diabetes Mellitus. Chronic. A1c 8.6% He is on a curious regimen of low doses of U5 100 insulin. He needs a diabetic regimen that minimizes hypoglycemia risk. - Recommend to minimize the use of rapid and short acting insulin. Would prefer regimen of basal insulin plus DPP 4 or GLP-1 agonist. Resolving, stable and/or chronic problems: Acute leukocytosis poa. No clinical sign of focal colitis infection. Received ceftriaxone and azithromycin initially. 13.5 on admission; now normal - Discontinue antibiotics Acute Respiratory failure, present on admission. Active. - Is maintained 93-99% O2 saturation on 3-4 L O2 - Titrate to room air as tolerated ESRD, on Dialysis. - M,W,F schedule. Extra session on Tuesday 12/26. - Outpatient oracle programmer, Dr. Pruitt. - Nephrology consulted. Obstructive Sleep Apnea, not compliant with home CPAP. - Nightly CPAP ordered. Hypertension - Will continue home Carvedilol, Amlodipine, and Losartan. GERD. - Continue home Omeprazole. Chronic pain. - Patient taking abnormally large doses of ASA and Ibuprofen daily. - Holding home asa/nsaids. Acetaminophen for mild pain when necessary. Bowel regimen Senna and MiraLAX scheduled and PRN. Zofran when necessary for nausea and vomiting. SubQ heparin for now. SCDs in place. High-risk medications: IV Morphine IV Dilaudid. Patient Status: Patient is admitted under inpatient status with expected length of stay greater than 2 midnights due to severity of presenting symptoms, risk of adverse event, and complexity of treatment plan. VTE Prophylaxis: Sub-Q Heparin (Unfractionated) Resuscitation Status: CPR: Attempt Resuscitation Time spent [address] MD Dec 27, 2016 11:33
--- NOTE | 2016-12-27 12:32 | PCM.PNNEPH ---
Subjective Date of Service Dec 27, 2016 Subjective The patient offers no new complaints and apparently there has been no evidence of any further seizure activity. I am unsure as to EEG has been done showing no report is on the chart. The patient has not been seen by neurology at. Exam Vital Signs Vital Sign - Last Date Time Temp Pulse Resp B/P Pulse Ox O2 Delivery O2 Flow Rate FiO2 12/27/16 09:27 Supplement Oxygen CPAP/BIPAP 12/27/16 09:27 37.0 83 18 179/87 100 3.50 Intake and Output 12/26/16 12/26/16 12/27/16 Cumulative From/Thru 15:00 23:00 07:00 12/24/16 16:36 - 12/27/16 05:35 Intake Total 0 ml 2058 ml Output Total 2000 ml 0 ml 2000 ml Balance -2000 ml 0 ml 58 ml Intake Oral 0 ml 1550 ml IV Total 508 ml Output Urine Total 0 ml 0 ml Ultrafiltrate 2000 ml 2000 ml # Bowel Movements 0 0 Exam Lungs are clear to auscultation. Heart was regular and rhythmical with a soft systolic murmur. Abdomen is soft without any tenderness rebound guarding masses or hepatosplenomegaly. Extremities no extremity evidence of any clubbing cyanosis or edema. Lab and Diagnostics Result Diagram: 12/25/16 0659 12/26/16 0240 X-Rays, CTs and MRIs PROCEDURE: X-RAY LEFT HIP COMPLETE, MINIMUM TWO VIEWS ([id number]) IMPRESSION: Healed fracture deformity of the left femoral neck with expected positioning of fixation hardware. Mild left hip joint degeneration and diffuse osteopenia. Dictated by: Richie CALVERT Interpreted: Jesenia Weston MD on 12/25/2016 at 9:37 Approved by: Jesenia Weston M.D. on 12/25/2016 at 14:23 PROCEDURE: US VEINOUS LEG DUPLEX UNILATERAL, LEFT IMPRESSION: No DVT found, left lower extremity. Below knee amputation left leg. Dictated by: Nicola Lozano M.D. on 12/24/2016 at 19:43 PROCEDURE: X-RAY CHEST ONE VIEW, PORTABLE ([id number]) IMPRESSION: No acute cardiopulmonary disease. Dictated by: Richie CALVERT Interpreted: Jesenia Weston MD on 12/25/2016 at 9:47 . Plan Impression Impression #1 end-stage renal disease dialysis dependent number to diabetic nephropathy #3 hypertension with hypertensive heart disease and hypertensive nephrosclerosis #4 seizure disorder Recommendations #1 I will make ranges for his dialysis on Wednesday should he be here. Once again I feel that his current dialysis time he not be adequate for his body habitus and degree of renal dysfunction. I have discussed with the patient consideration for a longer dialysis time. Iban Armas DO Dec 27, 2016 12:32
[2016-12-28] VITALS (9 sets, daily range): BP systolic 136–154; BP diastolic 79–93; PULSE 66–77; RESP 16–20; O2SAT 94–95
[2016-12-28] MEDS: Insulin Human NPH 100 Unit/mL Syringe SUBQ SCH ×4 (02:20→17:21)
--- NOTE | 2016-12-28 07:20 | NUR ---
BGs/VPAP Pt's BGs remained in the 80s-100s range throughout the shift. Pt received 5 Units of NPH at 0220. Pt used VPAP in room during sleep. Pt does have a spot on bridge of nose that is bleeding from mask rubbing on face. Bactrim was put on the pt's bridge of nose and pt was told that when putting on the face mask again that they need a mepilex cut out to fit their nose to prevent further skin irritation and breakdown. The mepilex is in the room.
[2016-12-28] MEDS: Insulin LISPRO 300 Unit/3 mL Inj SUBQ SCH ×4 (08:00→20:53)
[2016-12-28] MEDS: Pantoprazole 20 mg ER24 Tablet PO SCH (08:40)
[2016-12-28] MEDS: Heparin 5,000 Unit/mL Inj SUBQ SCH ×2 (08:41→19:27)
--- NOTE | 2016-12-28 10:19 | NUR ---
Off the unit The pt left the unit for a CT today at 1015. The pt was pre-medicated for pain prior to leaving; A&Ox3, VS and blood sugars stable.
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
[2016-12-28 11:44] LABS: Phosphorus 10.8 mg/dL (2.5-4.9)
--- NOTE | 2016-12-28 12:11 | DRSVH ---
PROCEDURE: CT LUMBAR SPINE WITHOUT CONTRAST ([id number]) INDICATIONS: r/o spinal pathology, disc TECHNIQUE: Noncontrast 3 mm thick sections acquired from the T12 level to the sacrum. Sagittal and coronal refo rmats were constructed. For radiation dose reduction, the following was used: automated exposure co ntrol. COMPARISON: [facility], CR, XR HIP 2VW LT, 12/24/2016, 19:45. [facility], CT , CT ABD PELVIS WO CON, 01/27/2015, 23:07. [facility], CT, L-SPINE W/O CONTRAST, 03/15/20 14, 10:40. FINDINGS: Image quality: Excellent. Bones: There are mildly displaced fractures of the right transverse processes of L4 and L5. Cortical irregularity involving the posterior cortex of L5 is suspicious a nondisplaced fracture. Comminuted fractures of sacrum are present. There is normal bony alignment. There is a chronic severe compressi on fracture at L1, which was seen on the comparison CT dated 01/31/2015. No suspicious lytic or blast ic bony lesions. No pars defects. T12-L1: Large Schmorl's node in the superior endplate of L1. There is broad posterior disc bulge and disc ossified complex. The central canal is minimally narrowed. No foraminal stenosis. L1-L2: There is Schmorl's node in the superior endplate of L2. There is broad posterior disc. Mild b ilateral facet arthropathy. The central canal is minimally narrowed. Mild to moderate bilateral radha inal stenosis. L2-L3: Preserved disc height and broad posterior disc bulge. Mild bilateral facet arthropathy. The c entral canal is mildly narrowed. Mild bilateral foraminal stenosis. L3-L4: Preserved disc height and broad posterior disc bulge. Mild bilateral facet arthropathy and h ypertrophy of ligamentum flavum. The central canal is mildly narrowed. Mild bilateral foraminal steno sis. L4-L5: Preserved disc height and broad posterior disc bulge. Mild bilateral facet arthropathy and h ypertrophy of ligamentum flavum. The central canal is mildly narrowed. Mild bilateral foraminal steno sis. L5-S1: Preserved disc height and broad posterior disc bulge. Mild bilateral facet arthropathy. The central canal is moderately narrowed. Mild bilateral foraminal stenosis. Soft tissues: No retroperitoneal masses or hematomas. Visualized aorta is normal in caliber. IMPRESSION: 1. Mildly displaced fractures of the L4 and L5 right transverse process. 2. Possible nondisplaced fracture of the L5 vertebral body. 3. Comminuted fractures of sacrum. Please see separate CT pelvis report for detail. 4. Severe nonacute compression fracture of L1. 5. Degenerative disc disease and facet arthropathy in lumbar spine as described. Dictated by: Meir Aguirre M.D. on 12/28/2016 at 11:53 Transcribed by: ALCON on 12/28/2016 at 12:10 Approved by: Meir Aguirre M.D. on 12/28/2016 at 21:57
--- NOTE | 2016-12-28 12:37 | NUR ---
Inpatient Wound Nurse Patient seen for L patella ulcer. Wound greatly improved, fully epithelializing wound bed, pink and granulating, moderate amount of drainage noted in removed hydrocolloid, non-odorous, well-adhered edges, margins are smooth. Wound was cleansed, blotted dry, periwound swabbed with skin prep and covered with hydrocolloid. Until prosthesis is evaluated for re-fit, patella should have dressing on at all times.
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
--- NOTE | 2016-12-28 13:46 | PCM.PNNEPH ---
Subjective Date of Service Dec 28, 2016 Subjective Complaining of hip pain. He has no chest pain shortness of breath or fever or chills. Exam Vital Signs Vital Sign - Last Date Time Temp Pulse Resp B/P Pulse Ox O2 Delivery O2 Flow Rate FiO2 12/28/16 12:32 37.0 77 18 150/79 94 Room Air 12/28/16 08:53 1.00 Intake and Output 12/27/16 12/27/16 12/28/16 Cumulative From/Thru 15:00 23:00 07:00 12/24/16 16:36 - 12/28/16 06:03 Intake Total 260 ml 200 ml 2518 ml Output Total 0 ml 300 ml 2300 ml Balance 260 ml -100 ml 218 ml Intake Oral 260 ml 200 ml 2010 ml IV Total 508 ml Output Urine Total 0 ml 300 ml 300 ml Ultrafiltrate 2000 ml # Voids 1 1 # Bowel Movements 0 Exam GENERAL: The patient in no apparent distress, and alert and oriented x3. Moderate pain. HEENT: Head is normocephalic and atraumatic. Extraocular muscles are intact. NECK: Supple, no elevation of JVD, No carotid bruits. No lymphadenopathy or thyromegaly. LUNGS: Clear to auscultation, equal breath sounds bilaterally, no wheezing, no rhonchi no rales. HEART: Normal S1/S2, Regular rate and rhythm, no murmurs, rubs or gallops. 2+ pules throughout. ABDOMEN: Soft, nontender, and nondistended. Positive bowel sounds. No hepatosplenomegaly was noted. EXTREMITIES: Without any cyanosis, clubbing, rash, lesions or edema. Bilateral BKA. Left AV fistula with good thrill and bruit. Lab and Diagnostics Result Diagram: 12/25/16 0659 12/28/16 1113 X-Rays, CTs and MRIs PROCEDURE: X-RAY LEFT HIP COMPLETE, MINIMUM TWO VIEWS ([id number]) IMPRESSION: Healed fracture deformity of the left femoral neck with expected positioning of fixation hardware. Mild left hip joint degeneration and diffuse osteopenia. Dictated by: Richie HAGENA Interpreted: Jesenia Weston MD on 12/25/2016 at 9:37 Approved by: Jesenia Weston M.D. on 12/25/2016 at 14:23 PROCEDURE: US VEINOUS LEG DUPLEX UNILATERAL, LEFT IMPRESSION: No DVT found, left lower extremity. Below knee amputation left leg. Dictated by: Nicola Lozano M.D. on 12/24/2016 at 19:43 PROCEDURE: X-RAY CHEST ONE VIEW, PORTABLE ([id number]) IMPRESSION: No acute cardiopulmonary disease. Dictated by: Richie Figueroa [facility] Interpreted: Jesenia Weston MD on 12/25/2016 at 9:47 PROCEDURE: CT PELVIS WITHOUT CONTRAST ([id number]) IMPRESSION: 1. Comminuted fractures of the sacrum, involving the S1 and S2 bodies, as well as sacral ala and S1 pedicles bilaterally. 2. Slightly displaced fracture of the right transverse process of L5. 3. Suspect nondisplaced fracture of the left anterior acetabulum. 4. Old femoral neck fracture with internal fixation. Dictated by: Meir Aguirre M.D. on 12/28/2016 at 11:18 PROCEDURE: CT LUMBAR SPINE WITHOUT CONTRAST ([id number]) IMPRESSION: 1. Mildly displaced right transverse process fractures of the L4 and L5. 2. Possible nondisplaced fracture of the L5 vertebral body. 3. Comminuted fractures of sacrum. Please see separate CT pelvis report for detail. 4. Severe nonacute compression fracture of L1. 5. Degenerative disc disease and facet arthropathy lumbar spine as described. Dictated by: Meir Aguirre M.D. on 12/28/2016 at 11:53 . Plan Impression 1. End-stage renal disease on hemodialysis 2. Hypoglycemia, resolved 3. Hip pain history of left hip fracture status post ORIF 4. LS spine fracture h/o degenerative joint disease and osteopenia 4. 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 Hypertension with hypertensive nephrosclerosis 6. Seizure 7. Severe hyperphosphatemia. Plan: Start fosrenol 1000 mg TID with meals. Check PTH level. Next dialysis will be performed on Wednesday. Dedrick Cota MD Dec 28, 2016 13:46
--- NOTE | 2016-12-28 14:45 | NUR ---
NUTRITION ASSESSMENT Assess: 51 YO M admitted for hypoglycemia, seizure. Pt on renal diet with fair PO intake. Neurology consulted. PMHX: Type 2 DM, ESRD on HD, PVD, bilateral BKA DIET: Renal. PO intake 25-100%. LABS: BUN 60, Cr 10.26, Glu 264, Ca 8.0, Phos 10.8. MEDICATIONS: Reviewed. GI: No BM noted. SKIN: Stg 2 patella ulcer. 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 ANTHROPOMETRICS: Wt: 75.0 ESTIMATED NEEDS: ESRD on HD, WOUNDS, -11.8% for bilateral BKA. Calories: 7784-2717 kcal/day (30-35 kcal/kg BW) Protein: 99-132 g/day (1.5-2.0 kcal/kg BW) NUTRITION DIAGNOSIS: 1) Increased nutrient needs related to wound healing, ESRD as evidenced by stg 2 PU, need for dialysis. INTERVENTION: 1) Pt does not like Nepro so will not send renal supplement. 2) Continue current diet as ordered. MONITOR/EVALUATE: PO intake, diet tolerance, labs, GI/nutrition status. Follow per moderate nutrition risk guidelines.
[2016-12-28] MEDS: HYDROmorphone 1 mg/mL Inj IVPUSH PRN ×2 (17:16→21:31)
[2016-12-28] MEDS: Lanthanum Carbonate 500 mg Chewable Tablet PO SCH (17:20)
--- NOTE | 2016-12-28 17:54 | NUR ---
Pain/Blood Sugars The pt has multiple confirmed pelvic/back fractures - PO and IV pain management ordered and is currently effective. Blood sugars continue to be unstable - MD ordering long acting and short acting. The pt continues to be A&Ox3 with VSS - will continue to monitor
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
[2016-12-29] MEDS: Insulin Human NPH 100 Unit/mL Syringe SUBQ SCH ×2 (00:28→08:55)
[2016-12-29] MEDS: HYDROmorphone 1 mg/mL Inj IVPUSH PRN ×3 (02:45→16:45)
--- NOTE | 2016-12-29 03:22 | NUR ---
blood glucose: pt's blood glucose last night was 135, 5 units lantus given, pt's blood glucose rechecked at 0235 am was down to 59., orange juice and crackers given.
[2016-12-29] MEDS ORDERED: Insulin Human NPH 100 Unit/mL Syringe SUBQ SCH ×2 (08:00→23:00)
[2016-12-29] MEDS: Insulin LISPRO 300 Unit/3 mL Inj SUBQ SCH ×4 (08:00→20:08)
[2016-12-29 08:45] VITALS: BP 150/90; PULSE 78; RESP 20; O2SAT 92
[2016-12-29] MEDS: Lanthanum Carbonate 500 mg Chewable Tablet PO SCH ×3 (08:48→16:45)
[2016-12-29] MEDS: Pantoprazole 20 mg ER24 Tablet PO SCH (08:48)
[2016-12-29] MEDS: Heparin 5,000 Unit/mL Inj SUBQ SCH ×2 (08:49→20:16)
--- NOTE | 2016-12-29 09:25 | NUR ---
Pt off Unit/Blood sugars The pt left the unit for dialysis on [place] at 0900. Prior to leaving, the pt's blood sugars were 136 and the pt stated he "did not want to eat breakfast". The morning nutritional/correctional dose of fast acting insulin was held, and the long acting (8 units) was given. Report regarding blood sugars was given to STEFAN Gastelum on [facility] [place] [facility], and the request to check the pt's blood sugar in two hours was made. Will continue to monitor. The pt left the unit A&O (but drowsy) with VSS.
[2016-12-29 09:30] VITALS: BP 158/82; PULSE 72
--- NOTE | 2016-12-29 11:09 | NUR ---
Social Work: Continued Discharge Planning/Multidisciplinary Rounds D: Pt discussed in multidisciplinary rounds. Pt is not medically stable for discharge and continues to be in a lot of pain. Pt may require a transfer to a higher level of care for surgery. Case Management continues to follow pt's clinical course to assess for discharge needs. At this time, needs are unknown due to the patient's pain. PT has not yet been able to evaluate him. A: Pt who lives in [place] with his family. P: Evolving; STAFF COUNSEL to continue to follow to assess for discharge needs. DUNG Bautista
[2016-12-29 12:09] VITALS: BP 106/63; PULSE 60; RESP 21; O2SAT 94
--- NOTE | 2016-12-29 12:33 | PCM.PNNEPH ---
Subjective Date of Service Dec 29, 2016 Subjective Pt is seen during HD. C/o left leg cramps. Poor appetite. No fever/chills. Exam Vital Signs Vital Sign - Last Date Time Temp Pulse Resp B/P Pulse Ox O2 Delivery O2 Flow Rate FiO2 12/29/16 12:09 Room Air 12/28/16 23:26 2.00 Intake and Output 12/28/16 12/28/16 12/29/16 Cumulative From/Thru 15:00 23:00 07:00 12/24/16 16:36 - 12/29/16 06:08 Intake Total 836 ml 400 ml 3754 ml Output Total 200 ml 2500 ml Balance 836 ml 200 ml 1254 ml Intake Oral 836 ml 400 ml 3246 ml IV Total 508 ml Output Urine Total 200 ml 500 ml Ultrafiltrate 2000 ml # Voids 1 2 # Bowel Movements 3 3 Exam GENERAL: The patient in no apparent distress, and alert and oriented x3. Moderate pain. HEENT: Head is normocephalic and atraumatic. Extraocular muscles are intact. NECK: Supple, no elevation of JVD, No carotid bruits. No lymphadenopathy or thyromegaly. LUNGS: Clear to auscultation, equal breath sounds bilaterally, no wheezing, no rhonchi no rales. HEART: Normal S1/S2, Regular rate and rhythm, no murmurs, rubs or gallops. 2+ pules throughout. ABDOMEN: Soft, nontender, and nondistended. Positive bowel sounds. No hepatosplenomegaly was noted. EXTREMITIES: Without any cyanosis, clubbing, rash, lesions or edema. Bilateral BKA. Left AV fistula with good thrill and bruit. Lab and Diagnostics Result Diagram: 12/25/16 0659 12/28/16 1113 X-Rays, CTs and MRIs PROCEDURE: X-RAY LEFT HIP COMPLETE, MINIMUM TWO VIEWS ([id number]) IMPRESSION: Healed fracture deformity of the left femoral neck with expected positioning of fixation hardware. Mild left hip joint degeneration and diffuse osteopenia. Dictated by: Richie Figueroa A Interpreted: Jesenia Weston MD on 12/25/2016 at 9:37 Approved by: Jesenia Weston M.D. on 12/25/2016 at 14:23 PROCEDURE: US VEINOUS LEG DUPLEX UNILATERAL, LEFT IMPRESSION: No DVT found, left lower extremity. Below knee amputation left leg. Dictated by: Nicola Lozano M.D. on 12/24/2016 at 19:43 PROCEDURE: X-RAY CHEST ONE VIEW, PORTABLE ([id number]) IMPRESSION: No acute cardiopulmonary disease. Dictated by: Richie Figueroa [facility] Interpreted: Jesenia Weston MD on 12/25/2016 at 9:47 PROCEDURE: CT PELVIS WITHOUT CONTRAST ([id number]) IMPRESSION: 1. Comminuted fractures of the sacrum, involving the S1 and S2 bodies, as well as sacral ala and S1 pedicles bilaterally. 2. Slightly displaced fracture of the right transverse process of L5. 3. Suspect nondisplaced fracture of the left anterior acetabulum. 4. Old femoral neck fracture with internal fixation. Dictated by: Meir Aguirre M.D. on 12/28/2016 at 11:18 PROCEDURE: CT LUMBAR SPINE WITHOUT CONTRAST ([id number]) IMPRESSION: 1. Mildly displaced right transverse process fractures of the L4 and L5. 2. Possible nondisplaced fracture of the L5 vertebral body. 3. Comminuted fractures of sacrum. Please see separate CT pelvis report for detail. 4. Severe nonacute compression fracture of L1. 5. Degenerative disc disease and facet arthropathy lumbar spine as described. Dictated by: Meir Aguirre M.D. on 12/28/2016 at 11:53 . Plan Impression 1. End-stage renal disease on hemodialysis 3.5 hr, 2K, 35HCO3, UF 800 ml, DFR 600, BFR 400, AVF, revaclear MAX. 2. Hypoglycemia, resolved 3. Hip pain history of left hip fracture status post ORIF 4. LS spine fracture h/o degenerative joint disease and osteopenia 4. 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 Hypertension with hypertensive nephrosclerosis 6. Seizure 7. Severe hyperphosphatemia. Plan: continue fosrenol 1000 mg TID with meals. Check PTH level. Next dialysis will be performed on . Dedrick Cota MD Dec 29, 2016 12:33
--- NOTE | 2016-12-29 12:37 | NUR ---
Pain/Cramping Pt medicated with 10mg Roxicodone and 10mg Flexeryl for 10/10 pain with cramping during dialysis.
--- NOTE | 2016-12-29 12:57 | NUR ---
Hemodialysis note 4hr tx ordered, pt refused to dialyze 4hrs and agreed to 3.5hrs. Slept most of tx. /o cramps with 45min left and requested ti nd tx. "I have to come off, Take me off!" 600cc NS given for for cramps, no fluid removed from pt. SBP 140s-150s. blood glucose at 1220 101. Report given to PCU nurse. Transferred to hosp rm via bed.
--- NOTE | 2016-12-29 13:32 | NUR ---
Returned to Unit The pt returned to [facility] from [facility] at 1315. The pt returned A&O with VSS.
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
[2016-12-29 16:20] VITALS: BP 185/93; PULSE 86; RESP 21; O2SAT 90
[2016-12-29 20:09] VITALS: BP 155/90; PULSE 84; RESP 16; O2SAT 93
[2016-12-29] MEDS: Ondansetron 2 mg/mL 2 mL Inj IVPUSH PRN (20:50)
[2016-12-29 23:13] VITALS: BP 173/82; PULSE 83; RESP 16; O2SAT 92
[2016-12-30 02:09] VITALS: BP 158/85; PULSE 82; RESP 16; O2SAT 97
[2016-12-30 02:15] VITALS: RESP 16; O2SAT 95
[2016-12-30] MEDS: Ondansetron 2 mg/mL 2 mL Inj IVPUSH PRN ×2 (03:03→11:42)
[2016-12-30] MEDS: HYDROmorphone 1 mg/mL Inj IVPUSH PRN ×2 (03:03→09:48)
[2016-12-30 03:59] VITALS: BP 137/73; PULSE 82; RESP 16; O2SAT 95
[2016-12-30 04:23] LABS: Phosphorus 6.6 mg/dL (2.5-4.9)
[2016-12-30] MEDS: Insulin LISPRO 300 Unit/3 mL Inj SUBQ SCH ×2 (08:00→12:09)
[2016-12-30 09:47] VITALS: BP 133/72; PULSE 82; RESP 16; O2SAT 92
[2016-12-30] MEDS: Pantoprazole 20 mg ER24 Tablet PO SCH (09:48)
[2016-12-30] MEDS: Lanthanum Carbonate 500 mg Chewable Tablet PO SCH (09:49)
[2016-12-30] MEDS: Insulin Human NPH 100 Unit/mL Syringe SUBQ SCH (09:49)
[2016-12-30] MEDS: Heparin 5,000 Unit/mL Inj SUBQ SCH (09:50)
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
[2016-12-30] MEDS ORDERED: HYDROmorphone 1 mg/mL Inj IVPUSH ONE (11:20)
--- NOTE | 2016-12-30 12:36 | NUR ---
TRANSFER The pt left the unit at 1230 with BLS transport to [facility]'s ED. Prior to transport, the pt was given ativan, dilaudid, PO oxycodone, flexeril and zofran. The pt was successfully moved to the [facility] with minimal pain and discomfort. 20 min prior to transport, the pt's blood sugar was 522, and 7 units of fast acting insulin was administered. When on the [facility], blood sugar was rechecked and found to be 507 - MD called and the MD verbalized orders for NO more insulin due to the instability of the pt's blood sugars. [facility] and detailed accounts of the fluctuating and dropping blood sugars was explained. Detailed report was given to the EMS transport team. The pt left the unit A&Ox3 with VSS.
--- NOTE | 2016-12-30 13:46 | NUR ---
Social Work: Transfer Pt discussed in multidisciplinary rounds. Pt has been accepted at [facility] and is being transferred today. No further social work needs identified at this time by attending . DUNG Bautista
== END 2016-12-30 12:30 | disposition short-term general hospital (02) | DRG 100 ==
LOC: MPC 16:20 → PCC 12-25 22:06
PROVIDERS: ADMIT Hospitalist; ATTEND Hospitalist
PROC: 5A1D60Z (ICD-10-PCS; principal; 2016-12-26)
PROC: 5A09457 Assistance with Respiratory Ventilation, 24-96 Consecutive Hours, Continuous Positive Airway Pressure (ICD-10-PCS; 2016-12-26)
DX: G40.89 Other seizures (principal); J96.00 Acute respiratory failure, unspecified whether with hypoxia or hypercapnia; N18.6 End stage renal disease; I13.11 Hypertensive heart and chronic kidney disease without heart failure, with stage 5 chronic kidney disease, or end stage renal disease; S32.10XA Unspecified fracture of sacrum, initial encounter for closed fracture; S32.059A Unspecified fracture of fifth lumbar vertebra, initial encounter for closed fracture; I73.9 Peripheral vascular disease, unspecified; E11.649 Type 2 diabetes mellitus with hypoglycemia without coma; M85.88 Other specified disorders of bone density and structure, other site; E11.21 Type 2 diabetes mellitus with diabetic nephropathy; E11.65 Type 2 diabetes mellitus with hyperglycemia; E11.40 Type 2 diabetes mellitus with diabetic neuropathy, unspecified; G47.33 Obstructive sleep apnea (adult) (pediatric); K21.9 Gastro-esophageal reflux disease without esophagitis; G89.29 Other chronic pain; E83.39 Other disorders of phosphorus metabolism; M16.12 Unilateral primary osteoarthritis, left hip; Y92.415 Exit ramp or entrance ramp of street or highway as the place of occurrence of the external cause; Z91.19 Patient's noncompliance with other medical treatment and regimen; Z87.891 Personal history of nicotine dependence; Z89.512 Acquired absence of left leg below knee; Z99.2 Dependence on renal dialysis; Z89.511 Acquired absence of right leg below knee; V89.2XXA Person injured in unspecified motor-vehicle accident, traffic, initial encounter; Z79.4 Long term (current) use of insulin; Z79.82 Long term (current) use of aspirin; Z79.1 Long term (current) use of non-steroidal anti-inflammatories (NSAID)